=== PATIENT | male | born 1970 | race Caucasian/White ===

== ENCOUNTER 2020-09-21 21:07 | Emergency (ER) | payer MEDICAID ==
--- NOTE | 2020-09-21 21:59 | EDM.PDOC ---
ED HPI GENERAL MEDICAL PROBLEM - General Chief Complaint: Back Pain or Injury Stated Complaint: BACK PAIN Time Seen by Provider: 09/21/20 21:45 Source of Information: Reports: Patient History Limitations: Reports: No Limitations - History of Present Illness INITIAL COMMENTS - FREE TEXT/NARRATIVE: 50 year old male presents with lower back pain after lifting a cement block at 1200. He took flexeril at home and fell asleep for 4 hours. He has not taken any medication for the pain. Denies any SOB, CP, fever, incontinence of bowel or bladder, no radiation of the pain into testicles or legs. Onset: Today Onset Time: 12:00 Duration: Constant Location: Reports: Back Improves with: Reports: Immobilization, Medication Worsens with: Reports: Movement Associated Symptoms: Reports: No Other Symptoms ED ROS GENERAL - Review of Systems Review Of Systems: See Below Constitutional: Reports: No Symptoms HEENT: Reports: No Symptoms Respiratory: Reports: No Symptoms Cardiovascular: Reports: No Symptoms Endocrine: Reports: No Symptoms GI/Abdominal: Reports: No Symptoms : Reports: No Symptoms Musculoskeletal: Reports: Back Pain Skin: Reports: No Symptoms Neurological: Denies: Numbness, Tingling Psychiatric: Reports: No Symptoms ED EXAM,LOWER BACK PAIN/INJURY - Physical Exam Exam: See Below Exam Limited By: No Limitations General Appearance: Alert, No Apparent Distress Eye Exam: Bilateral Eye: PERRL Ears: Normal External Exam, Hearing Grossly Normal Nose: Normal Inspection, No Blood Throat/Mouth: Normal Voice Head: Atraumatic Neck: Normal Inspection, Non-Tender, Full Range of Motion. No: Lymphadenopathy (R), Lymphadenopathy (L) Respiratory/Chest: No Respiratory Distress, Lungs Clear, Normal Breath Sounds, No Accessory Muscle Use, Chest Non-Tender Cardiovascular: Normal Peripheral Pulses, Regular Rate, Rhythm, No Edema, No Murmur GI/Abdominal: Normal Bowel Sounds, Soft, Non-Tender Back Exam: Normal Inspection, Decreased Range of Motion, Muscle Spasm, Paraspinal Tenderness. No: CVA Tenderness (R), CVA Tenderness (L) Extremities: Normal Inspection, Normal Range of Motion, Non-Tender, No Pedal Edema, Normal Capillary Refill Neurological: Alert, Normal Mood/Affect, Normal Dorsiflexion, Normal Plantar Flexion, Normal Gait, Normal Reflexes, No Motor/Sensory Deficits, Oriented x 3 DTR - Lower Extremities: 3+: Knee (R), Knee (L), Ankle (R), Ankle (L) Psychiatric: Normal Affect, Normal Mood Skin Exam: Warm, Dry, Intact, Normal Color, No Rash Lymphatic: No Adenopathy Departure - Departure Time of Disposition: 22:03 Disposition: Home, Self-Care 01 Condition: Good Clinical Impression: Low back strain Qualifiers: Encounter type: initial encounter Qualified Code(s): S39.012A - Strain of muscle, fascia and tendon of lower back, initial encounter - Discharge Information *PRESCRIPTION DRUG MONITORING PROGRAM REVIEWED*: Not Applicable *COPY OF PRESCRIPTION DRUG MONITORING REPORT IN PATIENT [facility]: Not Applicable Instructions: Muscle Strain, [id number], Back Injury Prevention, [id number] Additional Instructions: Take 800mg ibuprofen with food every 8 hours as needed for pain. Take the flexeril three times a day as needed for muscle spasms. Drink plenty of water, rest. Ice area of pain for 15-20 minutes every 3-4 hours for the next 24-48 hours, then you may use heat. Get some lidocaine patches tomorrow. Follow up with primary doctor next week if pain persists to schedule MRI. Return to ED for any increased or new concerning symptoms as we discussed. Gentle stretched as allowed with the pain.
[2020-09-21] MEDS: Diazepam 5 MG Tab PO ONE (22:00)
[2020-09-21] MEDS: Ibuprofen 800 MG Tab PO ONE (22:00)
[2020-09-21] MEDS ORDERED: Cyclobenzaprine 10 MG Tab ONE (22:00)
[2020-09-21] MEDS ORDERED: Ibuprofen 800 MG Tab ONE (22:00)
== END 2020-09-21 22:15 | disposition home or self-care (01) ==
LOC: LB.ED 21:07
DX: S39.012A Strain of muscle, fascia and tendon of lower back, initial encounter (principal); X50.0XXA Overexertion from strenuous movement or load, initial encounter; Y92.009 Unspecified place in unspecified non-institutional (private) residence as the place of occurrence of the external cause
CPT/HCPCS: 99283; A9270-GY

== ENCOUNTER 2024-10-17 20:01 | Emergency (ER) | payer BC ==
[2024-10-17] MEDS: Ketorolac 15 MG/ML SDV IM ONE (20:48)
[2024-10-17 21:00] LABS: APPEARANCE,URINE CLEAR (CLEAR); BILIRUBIN,URINE NEGATIVE (NEGATIVE); COLOR,URINE YELLOW; GLUCOSE,URINE NEGATIVE (NEGATIVE); KETONES,URINE NEGATIVE (NEGATIVE); PROTEIN,URINE NEGATIVE (NEGATIVE)
[2024-10-17 21:01] LABS: LEUKOCYTE ESTERASE,URINE NEGATIVE (NEGATIVE); NITRITE,URINE NEGATIVE (NEGATIVE); OCCULT BLOOD,URINE TRACE-INTACT (NEGATIVE); UROBILINOGEN,URINE 0.2 E.U./dL (0.2-1.0)
[2024-10-17 21:06] LABS: RBC,URINE 0-5 /HPF; WBC,URINE NOT SEEN /HPF
[2024-10-17] MEDS: Cyclobenzaprine 5 MG Tab PO STA (21:26)
[2024-10-17] MEDS ORDERED: Cyclobenzaprine 10 MG Tab ONE (23:00)
== END 2024-10-17 23:11 | disposition home or self-care (01) ==
LOC: LB.ED 20:01
DX: S39.012A Strain of muscle, fascia and tendon of lower back, initial encounter (principal); N20.0 Calculus of kidney; F17.200 Nicotine dependence, unspecified, uncomplicated; X50.1XXA Overexertion from prolonged static or awkward postures, initial encounter
CPT/HCPCS: 74176; 81001; 96372; 99284; A9270-GY; J1885